=== PATIENT | female | born 1965 | race Caucasian/White ===

== ENCOUNTER → 2017-06-15 | Outpatient (CLI) | payer OTHER ==
[~2017-06-15] MED LIST: ASPIRIN 81M81 MG/TA2 PO; ATIVAN 0.50.5 MG/TAB PO; B-1100 MG PO; BUSPAR10 MG PO; CALCIUM1 CAP PO; CEPHALEXIN500 M1 PO; CYANOCOBAL1000 MCG/1 IM; CYMBALTA 30MG30 MG PO; ELITE MAGNESIUM1 TAB PO; FOLIC ACID 11 MG/TA1 PO; K-DUR 2020 MEQ PO; LEVAQUIN 750MG750 M1 PO; LEXAPRO 5MG5 MG PO; LYRICA 100MG C100 M1 PO; MULTIVITAMIN1 CTB PO; NORCO 325 MG-51 TAB PO; PRILOSEC 20MG20 MG PO; ROXICODONE 55 MG/TAB PO; RT ALBUTER2.5 MG/0.5 IH; THERAGRAN1 TA1 PO; VALIUM 5MG T5 MG/TAB PO; VITAMIN B-100 MG/TAB PO; VITAMIN D1000 IU PO
== END ==
LOC: MC.RAD 11:29
DX: Z12.31 Encounter for screening mammogram for malignant neoplasm of breast (principal)

== ENCOUNTER 2021-07-16 15:18 | Emergency (ER) | payer OTHER ==
[~2021-07-16] VITALS: Ht 162.6 cm; Wt 59.1 kg
[2021-07-16 16:08] LABS: BASO # 0.1 K/mm3 (0.0-0.2); BASO % 1.2 % (0.0-2.0); EOS # 0.2 K/mm3 (0.0-0.7); EOS % 2.6 % (0-4.0); GRAN # 3.3 K/mm3 (1.4-6.5); GRAN % 47.8 % (42.2-75.2); HEMATOCRIT 40.6 % (37.0-47.0); HEMOGLOBIN 13.7 g/dl (12.5-16.0); LYMPH # 2.9 K/mm3 (1.2-3.4); LYMPH % 41.3 % (20.0-51.0); MEAN CELL VOLUME 93 fl (80.0-100.0); MEAN CORPUSCULAR HEMOGLOBIN 32 pg (27.0-31.0); MEAN CORPUSCULAR HGB CONC 34 g/dl (33.0-37.0); MEAN PLATELET VOLUME 10.5 fl (7.4-10.4); MONO # 0.5 K/mm3 (0.1-0.6); MONO % 6.8 % (1.7-9.3); PLATELET COUNT 220 K/mm3 (130-400); RED BLOOD COUNT 4.35 M/mm3 (4.10-5.30); REDCELL DISTRIBUTION WIDTH-CV 12.4 % (11.5-14.5)
[2021-07-16 16:13] LABS: INR 1.1 (0.8-3.0); PROTHROMBIN TIME 11.7 SECONDS (9.7-12.8)
[2021-07-16 16:18] LABS: ALANINE AMINOTRANSFERASE 9 U/L (0-55); ALKALINE PHOSPHATASE 80 U/L (40-150); ANION GAP 10 mmol/L (7-16); AST,SGOT 19 U/L (5-34); BILIRUBIN,TOTAL 0.4 mg/dL (0.2-1.2); BLOOD UREA NITROGEN 9 mg/dL (10-20); CALCIUM 9.5 mg/dL (8.4-10.2); CARBON DIOXIDE 25 mmol/L (22-29); CHLORIDE 108 mmol/L (98-107); GLUCOSE 81 mg/dL (70-99); POTASSIUM 4.2 mmol/L (3.5-4.5); SODIUM 143 mmol/L (136-145); TOTAL PROTEIN 6.7 gm/dL (6.2-8.1)
[2021-07-16 16:23] LABS: TROPONIN-I < 0.010 ng/mL (0.00-0.033)
[2021-07-16 17:35] VITALS: BP 138/64; PULSE 54; TEMP 98.4
== END 2021-07-16 17:35 | disposition home or self-care (01) ==
LOC: COL.ER 15:18
PROVIDERS: Family Medicine
DX: R07.89 Other chest pain (principal)